=== PATIENT | female | born 1980 | race Caucasian/White ===

== ENCOUNTER 2017-09-13 13:03 | Emergency (ER) | payer MEDICAID ==
[2017-09-13 15:12] VITALS: BP 112/70
== END 2017-09-13 14:35 | disposition home or self-care (01) ==
LOC: ED 13:03
DX: S16.1XXA Strain of muscle, fascia and tendon at neck level, initial encounter (principal); S29.012A Strain of muscle and tendon of back wall of thorax, initial encounter; S39.012A Strain of muscle, fascia and tendon of lower back, initial encounter; V49.9XXA Car occupant (driver) (passenger) injured in unspecified traffic accident, initial encounter; Y93.89 Activity, other specified; Y99.8 Other external cause status; Y92.89 Other specified places as the place of occurrence of the external cause
CPT/HCPCS: J1885; J3010; Q0162